=== PATIENT | female | born 1995 | race Asian ===

== ENCOUNTER 2016-09-18 16:13 | Emergency (ER) | payer SELFPAY ==
[~2016-09-18] VITALS: Ht 170.2 cm; Wt 56.9 kg
[2016-09-18 16:24] VITALS: BP 114/74; PULSE 95; TEMP 37; O2SAT 98; Ht 170.2 cm; Wt 56.9 kg
== END 2016-09-18 16:35 | disposition left against medical advice (07) ==
LOC: C.EDB 16:15
DX: R10.9 Unspecified abdominal pain (principal)